=== PATIENT | female | born 1955 | race Caucasian/White ===

== ENCOUNTER 2018-05-25 14:39 | Inpatient (IN) | payer MEDICARE, OTHER ==
--- NOTE | 2018-05-25 14:53 | ED Physician Chart ---
ED Chief Complaint/HPI - Patient Information Date Seen:: 05/25/18 Time Seen:: 14:40 Chief Complaint:: Psychotic Behavior History of Present Illness:: onset x 3 days of paranoid psychotic behavior; no report of trauma, H/As, neck pain, cough, C/P, SOB, Abd. Pain, A/N/V/D/C, SIs, fever, chills, or urinary s/s Allergies:: Allergies Allergy/AdvReac Type Severity Reaction Status Date / Time No Known Allergies Allergy Verified 05/25/18 14:48 Historian:: Patient, EMS Review:: Nurse's Note Reviewed, Old Chart Reviewed, EMS run form Reviewed ED Review of Systems - Review of Systems General/Constitutional: No fever, No chills, No weight loss, No weakness, No diaphoresis, No edema, No loss of appetite Skin: No skin lesions, No rash, No bruising Head: No headache, No light-headedness Eyes: No loss of vision, No pain, No diplopia ENT: No earache, No nasal drainage, No sore throat, No tinnitus Neck: No neck pain, No swelling, No thyromegaly, No stiffness, No mass noted Cardio Vascular: No chest pain, No palpitations, No PND, No orthopnea, No edema Pulmonary: No SOB, No cough, No sputum, No wheezing GI: No nausea, No vomiting, No diarrhea, No pain, No melena, No hematochezia, No constipation, No hematemesis G/U: No dysuria, No frequency, No hematuria, No nacturia Clinical Associate: No vaginal discharge, No abnormal vaginal bleed, No contraction Musculoskeletal: No bone or joint pain, No back pain, No muscle pain Endocrine: No polyuria, No polydipsia Psychiatric: Prior psych history, No depression, Anxiety, No suicidal ideation, No homicidal ideation, Auditory hallucination, No visual hallucination Hematopoietic: No bruising, No lymphadenopathy Allergic/Immuno: No urticaria, No angioedema Neurological: No syncope, No focal symptoms, No weakness, No paresthesia, No headache, No seizure, No dizziness, No confusion, No vertigo ED Past Medical History - Past Medical History Obtainable: Yes Past Medical History: HTN, Dyslipidemia Family History: HTN Social History: Non Smoker, No Alcohol, No Drug Use, Single, Care Facility Surgical History: None Psychiatricy History: Schizophrenia Medication: Reviewed Family Medical History - Family Member Mother History Unknown: Yes ED Physical Exam - Physical Examination General/Constitutional: Awake, Well-developed, well-nourished, Alert, No distress, GCS 15, Non-toxic appearing, Ambulatory Head: Atraumatic Eyes: Lids, conjuctiva normal, PERRL, EOMI Skin: Nl inspection, No rash, No skin lesions, No ecchymosis, Well hydrated, No lymphadenopathy ENMT: External ears, nose nl, TM canals nl, Nasal exam nl, Lips, teeth, gums nl , Oropharynx nl, Tonsils nl Neck: Nontender, Full ROM w/o pain, No JVD, No nuchal rigidity, No bruit, No mass, No stridor Respiratory: Nl effort/Exclusion, Clear to Auscultation, No Wheeze/Rhonchi/Rales Cardio Vascular: RRR, No murmur, gallop, rubs, NL S1 S2, Carotid/Femoral/Distal pulses equal bilaterally GI: No tenderness/rebounding/guarding, No organomegaly, No hernia, Normal BS's, Nondistended, No mass/bruits, No McBurney tenderness : No CVA tenderness Extremities: No tenderness or effusion, Full ROM, normal strength in all extremities, No edema, Normal digits & nails Neuro/Psych: Alert/oriented, DTR's symmetric, Normal sensory exam, Normal motor strength, Judgement/insight normal, Mood normal, Normal gait, No focal deficits Other Neuro/Psych comments:: + Psychomotor Agitation; no SIs; Mood/Affect: Labile Misc: Normal back, No paraspinal tenderness ED Labs/Radiology/EKG Results - Lab Results Comments:: Reviewed - EKG Interpretations EKG Time:: 13:57 Rate & Rhythm: 92; NSR Comments:: non-specific st-t changes ED Septic Shock - . Is Septic Shock (SBP<90, OR Lactate>4 mmol\L) present?: No ED Reassessment (Disposition) - Reassessment Reassessment Condition:: Improved - Diagnosis Diagnosis:: Psychosis; Paranoia; Medical Clearance; Hypokalemia; Bipolar Disorder; Schizophrenia - Aftercare/Follow up Instructions Aftercare/Follow-Up Instructions:: Counseled pt regarding lab results/diagnosis & need follow up, Counseled pt & family regarding lab results/diagnosis & need follow up - Patient Disposition Discharge/Transfer:: Acute Care w/in this hosp Admitted to:: [facility] Condition at Disposition:: Stable, Improved
[2018-05-25 15:11] LABS: % BASOPHILS 1.2 % (0.0-2.0); % LYMPHOCYTES 19.2 % (20.0-50.0); % MONOCYTES 7.2 % (2.0-10.0); % NEUTROPHILS 71.4 % (40.0-80.0); BASOPHILE ABSOLUTE 0.1 Th/cumm (0-0.2); EOSINOPHILE ABSOLUTE 0.1 Th/cmm (0.1-0.4); HEMATOCRIT 45.7 % (41.0-60); HEMOGLOBIN 15.6 gm/dL (12-16); LYMPHOCYTE ABSOLUTE 2.3 Th/cmm (1.5-3.0); MEAN CELL VOLUME 90.4 fl (81-100); MEAN CORPUSCULAR HEMOGLOBIN 30.8 pg (27.0-31.0); MEAN CORPUSCULAR HGB CONC 34.1 pg (28.0-36.0); MEAN PLATELET VOLUME 9.1 fl; MONOCYTE ABSOLUTE 0.9 Th/cmm (0.3-1.0); NEUTROPHILE ABSOLUTE 8.6 Th/cmm (1.8-8.0); PLATELET COUNT 246 Th/cmm (150-400); RED BLOOD COUNT 5.06 Mil/cmm (3.80-5.10); RED CELL DISTRIBUTION WIDTH 13.2 % (11.5-20.0)
[2018-05-25 15:27] LABS: ACETAMINOPHEN < 10.0 ug/mL (10.0-30.0); ALB/GLOB RATIO 1.6 (1.0-1.8); ALBUMIN 4.6 gm/dL (3.7-5.3); ALKALINE PHOSPHATASE 81 U/L (34-104); ANION GAP 14.2 (7.0-16.0); BILIRUBIN,TOTAL 0.4 mg/dL (0.3-1.0); BUN - UREA NITROGEN 12 mg/dL (7-25); CALCIUM SERUM 9.2 mg/dL (8.6-10.3); CARBON DIOXIDE 23.8 mEq/L (21.0-31.0); CHLORIDE 107 mEq/L (98-107); CHOLESTEROL 172 mg/dL (<200); GFR AFRICAN-AMERICAN > 60.0 ml/min (>90); GFR NON AFRICAN-AMERICAN 59.7 ml/min; GLUCOSE 102 mg/dL (70-105); HDL -HIGH DENSITY LIPOPROTEIN 52 mg/dL (23-92); SGOT 28 U/L (13-39); SGPT/ALT 23 U/L (7-52); SODIUM SERUM 142 mEq/L (136-145); TOTAL PROTEIN,SERUM 7.5 gm/dL (6.0-8.3); TRIGLYCERIDES 99 mg/dL (<150)
[2018-05-25 15:29] LABS: SALICYLATES (ASPIRIN) < 25.0 mg/L (30.0-100.0)
[2018-05-25] MEDS ORDERED: Potassium Chloride 20 mEq ER Tab PO ONE ×2 (15:47→15:51)
[2018-05-25 17:41] VITALS: BP 150/83
[2018-05-25] MEDS ORDERED: Fleet Enema 135 mL RC PRN (17:59)
[2018-05-26] MEDS: Levothyroxine 0.1 Mg Tab PO SCH (06:31)
[2018-05-26] MEDS: Vitamin D3 2,000 IU SGL PO SCH (09:23)
[2018-05-26] MEDS: POLYETHYLENE GLYCOL 3350 17 GM PACK PO SCH (09:24)
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
[2018-05-27] MEDS: Levothyroxine 0.1 Mg Tab PO SCH (06:29)
[2018-05-27] MEDS: Vitamin D3 2,000 IU SGL PO SCH (08:58)
[2018-05-27] MEDS: POLYETHYLENE GLYCOL 3350 17 GM PACK PO SCH (09:01)
--- NOTE | 2018-05-27 17:53 | History & Physical ---
ADMIT DATE: REASON FOR ADMISSION: Psychiatric disorder. HISTORY OF PRESENT ILLNESS: This is a 62-year-old female who was admitted to Geropsych Unit by Dr. Klein. I was asked to do medical H and P on this patient. The patient states she is doing fine. Denies any medical complaints. PAST MEDICAL HISTORY: Hypothyroidism, GERD, chronic constipation, hypertension. PAST SURGICAL HISTORY: Right ankle in the past. FAMILY HISTORY: Noncontributory. SOCIAL HISTORY: [facility] at jail. No reported alcohol, tobacco or drug use. CURRENT MEDICATIONS: Per medication reconciliation. ALLERGIES: None. REVIEW OF SYSTEMS: As per HPI. No fever, no chills, no nausea, no abdominal pain, no headache, no trouble breathing, no chest pain, no palpitation, no bloody stool, bloody urine, or other concerns. PHYSICAL EXAMINATION: VITAL SIGNS: Temperature 97.9, pulse 70, respiration 19, blood pressure 138/57, ____ on room air. HEENT: Unremarkable. CARDIOVASCULAR: S1, S2 normal. LUNGS: Clear. ABDOMEN: Soft, nontender. ____. EXTREMITIES: No edema, no calf tenderness. AVAILABLE LABORATORY DATA: As noted. ASSESSMENT: 1. Hypertension. 2. Hypothyroidism. 3. Gastroesophageal reflux disease. 4. Leukocytosis. 5. Mental disorder. PLAN: Continue amlodipine. Continue levothyroxine. Continue psychotropic meds. Monitor lab and vitals. The patient is medically stable [facility]. Thank you, Dr. Klein for allowing me to participate in the care of this patient. JOB# [id number]
[2018-05-27 18:39] LABS: CHOLESTEROL 167 mg/dL (<200); HDL -HIGH DENSITY LIPOPROTEIN 43 mg/dL (23-92); TRIGLYCERIDES 113 mg/dL (<150)
--- NOTE | 2018-05-28 00:44 | Progress Notes ---
DATE: 05/27/2018 Case was discussed with staff of the patient and reviewed records. The patient continues to be internally preoccupied, unpredictable, and impulsive, needing redirection. She is denying all the events that led to her admission and she was questioning the validity of the hold, she said ____. She continues to be unpredictable, impulsive, needing redirection. No side effects to the medication, no sedation, no nausea, no extrapyramidal symptoms. We will continue to work with the patient in group therapy, milieu therapy, and adjust the medication as needed. JOB# [id number]
[2018-05-28] MEDS: Levothyroxine 0.1 Mg Tab PO SCH (06:33)
[2018-05-28] MEDS: Vitamin D3 2,000 IU SGL PO SCH (08:47)
[2018-05-28] MEDS: POLYETHYLENE GLYCOL 3350 17 GM PACK PO SCH (08:49)
[2018-05-28] MEDS: Hydrocodone/APAP 5mg/325mg Tab PO PRN (09:24)
--- NOTE | 2018-05-28 21:01 | General Progress Note ---
Subjective - Review of Systems Service Date: 05/29/18 Subjective: Patient doing fine denied any complaints Objective - Results Result Diagrams: 05/25/18 15:05 05/25/18 15:05 Recent Labs: Laboratory Last Values WBC 12.0 Th/cmm (4.8-10.8) H 05/25/18 15:05 RBC 5.06 Mil/cmm (3.80-5.10) 05/25/18 15:05 Hgb 15.6 gm/dL (12-16) 05/25/18 15:05 Hct 45.7 % (41.0-60) 05/25/18 15:05 MCV 90.4 fl (81-100) 05/25/18 15:05 MCH 30.8 pg (27.0-31.0) 05/25/18 15:05 MCHC Differential 34.1 pg (28.0-36.0) 05/25/18 15:05 RDW 13.2 % (11.5-20.0) 05/25/18 15:05 Plt Count 246 Th/cmm (150-400) 05/25/18 15:05 MPV 9.1 fl 05/25/18 15:05 Neutrophils % 71.4 % (40.0-80.0) 05/25/18 15:05 Lymphocytes % 19.2 % (20.0-50.0) L 05/25/18 15:05 Monocytes % 7.2 % (2.0-10.0) 05/25/18 15:05 Eosinophils % 1.0 % (0.0-5.0) 05/25/18 15:05 Basophils % 1.2 % (0.0-2.0) 05/25/18 15:05 Sodium 142 mEq/L (136-145) 05/25/18 15:05 Potassium 3.0 mEq/L (3.5-5.1) L 05/25/18 15:05 Chloride 107 mEq/L (98-107) 05/25/18 15:05 Carbon Dioxide 23.8 mEq/L (21.0-31.0) 05/25/18 15:05 Anion Gap 14.2 (7.0-16.0) 05/25/18 15:05 BUN 12 mg/dL (7-25) 05/25/18 15:05 Creatinine 1.0 mg/dL (0.6-1.2) 05/25/18 15:05 Est GFR ( Amer) > 60.0 ml/min (>90) 05/25/18 15:05 Est GFR (Non-Af Amer) 59.7 ml/min 05/25/18 15:05 BUN/Creatinine Ratio 12.0 05/25/18 15:05 Glucose 102 mg/dL (70-105) 05/25/18 15:05 Calcium 9.2 mg/dL (8.6-10.3) 05/25/18 15:05 Total Bilirubin 0.4 mg/dL (0.3-1.0) 05/25/18 15:05 AST 28 U/L (13-39) 05/25/18 15:05 ALT 23 U/L (7-52) 05/25/18 15:05 Alkaline Phosphatase 81 U/L (34-104) 05/25/18 15:05 Troponin I 0.01 ng/mL (0.01-0.05) 05/25/18 15:05 Total Protein 7.5 gm/dL (6.0-8.3) 05/25/18 15:05 Albumin 4.6 gm/dL (3.7-5.3) 05/25/18 15:05 Globulin 2.9 gm/dL 05/25/18 15:05 Albumin/Globulin Ratio 1.6 (1.0-1.8) 05/25/18 15:05 Triglycerides 113 mg/dL (<150) 05/27/18 18:16 Cholesterol 167 mg/dL (<200) 05/27/18 18:16 LDL Cholesterol Direct 109 mg/dL (75-193) 05/27/18 18:16 HDL Cholesterol 43 mg/dL (23-92) 05/27/18 18:16 TSH 0.71 uIU/ml (0.34-5.60) 05/25/18 15:05 Salicylates < 25.0 mg/L (30.0-100.0) L 05/25/18 15:05 Acetaminophen < 10.0 ug/mL (10.0-30.0) L 05/25/18 15:05 Ethyl Alcohol < 10 mg/dL (0-10) 05/25/18 15:05 RPR NONREACTIVE (NONREACTIVE) 05/25/18 15:05 - Physical Exam Vitals and I&O: Vital Signs Temp 97.5 F 05/28/18 20:32 Pulse 58 05/28/18 20:32 Resp 19 05/28/18 20:32 BP 119/58 05/28/18 20:32 Pulse Ox 96 05/28/18 20:32 Intake & Output 05/28/18 05/28/18 05/29/18 06:59 18:59 06:59 Intake Total 240 2080 240 Balance 240 2080 240 Intake: Oral 240 1960 240 Other 120 Other: # Voids 2 4 1 # Bowel Movements 0 1 Stool Characteristics Soft Soft Soft Formed Formed Formed Active Medications: Current Medications Acetaminophen (Tylenol) 325 mg PO Q4H PRN PRN Reason: Pain (Moderate) Stop: 07/24/18 17:48 Acetaminophen (Tylenol) 500 mg PO Q4HR PRN PRN Reason: Pain Or Fever above 101 Stop: 07/24/18 17:52 Acetaminophen/Hydrocodone Bitart ([place] 5mg/325mg) 1 tab PO Q6H PRN PRN Reason: SEVERE PAIN Stop: 07/24/18 18:03 Last Admin: 05/28/18 09:24 Dose: 1 tab Amlodipine Besylate (Norvasc) 10 mg PO DAILY [facility] Stop: 07/25/18 08:59 Last Admin: 05/28/18 08:48 Dose: 10 mg Bisacodyl (Dulcolax 10 Mg Supp) 10 mg RC DAILY PRN PRN Reason: Constipation Stop: 07/24/18 17:55 Famotidine (Pepcid) 20 mg PO BID [facility] Stop: 07/25/18 08:59 Last Admin: 05/28/18 16:20 Dose: 20 mg Furosemide (Lasix) 20 mg PO DAILY [facility] Stop: 07/25/18 08:59 Last Admin: 05/28/18 08:48 Dose: 20 mg Levothyroxine Sodium (Synthroid) 0.1 mg PO QDAC [facility] Stop: 07/25/18 07:29 Last Admin: 05/28/18 06:33 Dose: 0.1 mg Lorazepam (Ativan) 0.5 mg PO Q4HR PRN; Protocol PRN Reason: Anxiety Stop: 06/24/18 21:11 Magnesium Hydroxide (Milk Of Magnesia) 30 ml PO HS PRN PRN Reason: Constipation Stop: 07/24/18 18:01 Polyethylene Glycol (Miralax) 17 gm PO DAILY [facility] Stop: 07/25/18 08:59 Last Admin: 05/28/18 08:49 Dose: 17 gm Pregabalin (Lyrica) 75 mg PO BID [facility] Stop: 07/25/18 08:59 Last Admin: 05/28/18 16:20 Dose: 75 mg Quetiapine Fumarate (Seroquel) 25 mg PO HS [facility]; Protocol Stop: 07/25/18 20:59 Last Admin: 05/28/18 20:42 Dose: 25 mg Sodium Phosphate (Fleet Enema) 135 ml RC DAILY PRN PRN Reason: Constipation Stop: 07/24/18 17:58 Vitamin D (Vitamin D3) 5,000 iu PO DAILY [facility] Stop: 07/25/18 08:59 Last Admin: 05/28/18 08:47 Dose: 5,000 iu Zolpidem Tartrate (Ambien) 5 mg PO HS PRN PRN Reason: Insomnia Stop: 07/24/18 21:11 Cardiovascular: Regular rate Lungs: Clear to auscultation Assessment/Plan - Problem List Patient Problems: All Active Problems 51/50 STATUS, DELUSIONAL (Acute) - Assessment Assessment: Hypotension Hypothyroidism Neuropathy Mental health disorder - Plan Plan: Continue current treatment Medically stable Monitor BP Nutritional Asmnt/Malnutr-PDOC - Dietary Evaluation Malnutrition Findings (Please click <Entered> for more info): Nutritional Asmnt/Malnutrition Start: 05/28/18 10: 17 Text: Status: Complete Freq: Protocol: Document 05/28/18 10:17 ROCIO (Rec: 05/28/18 10:32 [facility]) Nutritional Asmnt/Malnutrition Patient General Information Nutritional Screening Moderate Risk Diagnosis Bipolar, schizophrenia Pertinent Medical Hx/Surgical Hx Hypothyroidism, GERD, chronic constipation, hypertension Subjective Information Patient was admitted from SNF. Not in room at time of visit. Current Diet Order/ Nutrition Support 60 gm CCHO Patient / S.O Not Indicated Pertinent Medications Dulcolax, Pepcid, lasix, synthroid, MOM, Miralax, Fleet enema, Vitamin D3 Pertinent Labs (05/25) K 3 Nutritional Hx/Data Height 1.6 m Height (Calculated Centimeters) 160.0 Current Weight (lbs) 91.172 kg Weight (Calculated Kilograms) 91.2 Weight (Calculated Grams) 32332.1 [place] Body Weight 115 % [place] Body Weight 174 Body Mass Index (BMI) 35.6 Weight Status Obese GI Symptoms GI Symptoms None Last BM 05/27 x 1 Difficult in: None Food Allergies No Cultural/Ethnic/B[employer]ism Belief none indicated Usual diet at home unknown Skin Integrity/Comment: [place] 22, intact Current %PO Good (75-100%) Estimated Nutritional Goals BEE in Kcals: Using Current wt Calories/Kcals/Kg 91.3kg CBW 20-25 kcal/kg Kcals Calculated ~7654-2927 kcal/day Protein: Adj wt of IBW Protein g/k.8-1 gm/kg Protein Calculated ~70-90 gm/day Fluid: ml ~8020-3095 ml/day (1 ml/kcal) Nutritional Problem 1. Problem Problem Altered nutrition related lab values related to Etiology electrolyte imbalance aeb Signs/Symptoms: K 3 Intervention/Recommendation Comments 1. Continue 60 gm CCHO diet as tolerated by patient (per nursing notes, patient with type 1 DM?). Consider checking HGA1C and monitoring glucose. Encourage intake of high K foods. Expected Outcomes/Goals Expected Outcomes/Goals Oral intake >75% of meals, weight stable or trend toward IBW, nutrition related labs WNL F/U MR 3-5 days (05/31-)
--- NOTE | 2018-05-29 02:19 | Progress Notes ---
DATE: SUBJECTIVE: The patient was seen and evaluated. The patient's chart reviewed. [facility] being very paranoid with the FBI conspiring against her and wanted to kill her. The patient, overnight, has been refusing medications. She reported that she is not psychotic and then reported that you are not a FBI agent, so I need not explain anything to you. ASSESSMENT AND PLAN: The patient presents psychotic, delusional about the FBI conspiring against her, and noncompliant with medications. We will continue with validation of her emotions and may consider Riesing the patient. JOB# [id number]
[2018-05-29] MEDS: Levothyroxine 0.1 Mg Tab PO SCH (06:47)
[2018-05-29] MEDS: POLYETHYLENE GLYCOL 3350 17 GM PACK PO SCH (08:48)
[2018-05-29] MEDS: Vitamin D3 2,000 IU SGL PO SCH (08:49)
[2018-05-29] MEDS: Magnesium Hydroxide (MOM) 30 mL UDC PO PRN (20:34)
--- NOTE | 2018-05-30 05:42 | Progress Notes ---
DATE: 05/29/2018 SUBJECTIVE: The patient was seen and evaluated. The patient's chart reviewed. The patient denies any complications or side effects of the medications and she is refusing medications reporting that she does not have a mental illness, but continues to discuss the severity of her delusions in regards to the FBI conspiring against her and she becomes very irritable and does not want to talk and she gives me a letter that is to be given to the FBI. MENTAL STATUS EXAMINATION: Still delusional about the FBI. ASSESSMENT AND PLAN: The patient is noncompliant with medication, continues to be delusional about the FBI prosecution. JOB# [id number]
[2018-05-30] MEDS: Levothyroxine 0.1 Mg Tab PO SCH (06:45)
[2018-05-30] MEDS: POLYETHYLENE GLYCOL 3350 17 GM PACK PO SCH (08:43)
[2018-05-30] MEDS: Vitamin D3 2,000 IU SGL PO SCH (08:43)
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
[2018-05-31] MEDS: Levothyroxine 0.1 Mg Tab PO SCH (06:43)
[2018-05-31] MEDS: POLYETHYLENE GLYCOL 3350 17 GM PACK PO SCH (09:01)
[2018-05-31] MEDS: Vitamin D3 2,000 IU SGL PO SCH (09:01)
[2018-06-01] MEDS: Levothyroxine 0.1 Mg Tab PO SCH (06:37)
[2018-06-01] MEDS: POLYETHYLENE GLYCOL 3350 17 GM PACK PO SCH (08:55)
[2018-06-01] MEDS: Vitamin D3 2,000 IU SGL PO SCH (08:56)
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
[2018-06-01] MEDS: Hydrocodone/APAP 5mg/325mg Tab PO PRN (17:45)
--- NOTE | 2018-06-01 22:54 | General Progress Note ---
Subjective - Review of Systems Service Date: 06/01/18 Subjective: Patient doing fine denied any complaints Objective - Results Result Diagrams: 05/25/18 15:05 05/25/18 15:05 Recent Labs: Laboratory Last Values WBC 12.0 Th/cmm (4.8-10.8) H 05/25/18 15:05 RBC 5.06 Mil/cmm (3.80-5.10) 05/25/18 15:05 Hgb 15.6 gm/dL (12-16) 05/25/18 15:05 Hct 45.7 % (41.0-60) 05/25/18 15:05 MCV 90.4 fl (81-100) 05/25/18 15:05 MCH 30.8 pg (27.0-31.0) 05/25/18 15:05 MCHC Differential 34.1 pg (28.0-36.0) 05/25/18 15:05 RDW 13.2 % (11.5-20.0) 05/25/18 15:05 Plt Count 246 Th/cmm (150-400) 05/25/18 15:05 MPV 9.1 fl 05/25/18 15:05 Neutrophils % 71.4 % (40.0-80.0) 05/25/18 15:05 Lymphocytes % 19.2 % (20.0-50.0) L 05/25/18 15:05 Monocytes % 7.2 % (2.0-10.0) 05/25/18 15:05 Eosinophils % 1.0 % (0.0-5.0) 05/25/18 15:05 Basophils % 1.2 % (0.0-2.0) 05/25/18 15:05 Sodium 142 mEq/L (136-145) 05/25/18 15:05 Potassium 3.0 mEq/L (3.5-5.1) L 05/25/18 15:05 Chloride 107 mEq/L (98-107) 05/25/18 15:05 Carbon Dioxide 23.8 mEq/L (21.0-31.0) 05/25/18 15:05 Anion Gap 14.2 (7.0-16.0) 05/25/18 15:05 BUN 12 mg/dL (7-25) 05/25/18 15:05 Creatinine 1.0 mg/dL (0.6-1.2) 05/25/18 15:05 Est GFR ( Amer) > 60.0 ml/min (>90) 05/25/18 15:05 Est GFR (Non-Af Amer) 59.7 ml/min 05/25/18 15:05 BUN/Creatinine Ratio 12.0 05/25/18 15:05 Glucose 102 mg/dL (70-105) 05/25/18 15:05 Calcium 9.2 mg/dL (8.6-10.3) 05/25/18 15:05 Total Bilirubin 0.4 mg/dL (0.3-1.0) 05/25/18 15:05 AST 28 U/L (13-39) 05/25/18 15:05 ALT 23 U/L (7-52) 05/25/18 15:05 Alkaline Phosphatase 81 U/L (34-104) 05/25/18 15:05 Troponin I 0.01 ng/mL (0.01-0.05) 05/25/18 15:05 Total Protein 7.5 gm/dL (6.0-8.3) 05/25/18 15:05 Albumin 4.6 gm/dL (3.7-5.3) 05/25/18 15:05 Globulin 2.9 gm/dL 05/25/18 15:05 Albumin/Globulin Ratio 1.6 (1.0-1.8) 05/25/18 15:05 Triglycerides 113 mg/dL (<150) 05/27/18 18:16 Cholesterol 167 mg/dL (<200) 05/27/18 18:16 LDL Cholesterol Direct 109 mg/dL (75-193) 05/27/18 18:16 HDL Cholesterol 43 mg/dL (23-92) 05/27/18 18:16 TSH 0.71 uIU/ml (0.34-5.60) 05/25/18 15:05 Salicylates < 25.0 mg/L (30.0-100.0) L 05/25/18 15:05 Acetaminophen < 10.0 ug/mL (10.0-30.0) L 05/25/18 15:05 Ethyl Alcohol < 10 mg/dL (0-10) 05/25/18 15:05 RPR NONREACTIVE (NONREACTIVE) 05/25/18 15:05 - Physical Exam Vitals and I&O: Vital Signs Temp 97.6 F 06/01/18 20:00 Pulse 82 06/01/18 20:00 Resp 20 06/01/18 20:00 BP 122/78 06/01/18 20:00 Pulse Ox 98 06/01/18 20:00 Intake & Output 06/01/18 06/01/18 06/02/18 06:59 18:59 06:59 Intake Total 240 1500 Balance 240 1500 Intake: Oral 240 1500 Other: # Voids 1 3 # Bowel Movements 0 0 Active Medications: Current Medications Acetaminophen (Tylenol) 325 mg PO Q4H PRN PRN Reason: Pain (Moderate) Stop: 07/24/18 17:48 Acetaminophen (Tylenol) 500 mg PO Q4HR PRN PRN Reason: Pain Or Fever above 101 Stop: 07/24/18 17:52 Acetaminophen/Hydrocodone Bitart ([place] 5mg/325mg) 1 tab PO Q6H PRN PRN Reason: SEVERE PAIN Stop: 07/24/18 18:03 Last Admin: 06/01/18 17:45 Dose: 1 tab Amlodipine Besylate (Norvasc) 10 mg PO DAILY [facility] Stop: 07/25/18 08:59 Last Admin: 06/01/18 09:02 Dose: 10 mg Bisacodyl (Dulcolax 10 Mg Supp) 10 mg RC DAILY PRN PRN Reason: Constipation Stop: 07/24/18 17:55 Last Admin: 05/29/18 04:33 Dose: 10 mg Famotidine (Pepcid) 20 mg PO BID [facility] Stop: 07/25/18 08:59 Last Admin: 06/01/18 17:46 Dose: 20 mg Furosemide (Lasix) 20 mg PO DAILY [facility] Stop: 07/25/18 08:59 Last Admin: 06/01/18 09:02 Dose: 20 mg Levothyroxine Sodium (Synthroid) 0.1 mg PO QDAC [facility] Stop: 07/25/18 07:29 Last Admin: 06/01/18 06:37 Dose: 0.1 mg Lorazepam (Ativan) 0.5 mg PO Q4HR PRN; Protocol PRN Reason: Anxiety Stop: 06/24/18 21:11 Magnesium Hydroxide (Milk Of Magnesia) 30 ml PO HS PRN PRN Reason: Constipation Stop: 07/24/18 18:01 Last Admin: 05/29/18 20:34 Dose: 30 ml Polyethylene Glycol (Miralax) 17 gm PO DAILY [facility] Stop: 07/25/18 08:59 Last Admin: 06/01/18 08:55 Dose: 17 gm Pregabalin (Lyrica) 75 mg PO BID [facility] Stop: 07/25/18 08:59 Last Admin: 06/01/18 17:45 Dose: 75 mg Risperidone (Risperdal) 0.5 mg PO BID [facility]; Protocol Stop: 07/31/18 16:59 Last Admin: 06/01/18 18:00 Dose: Not Given Sodium Phosphate (Fleet Enema) 135 ml RC DAILY PRN PRN Reason: Constipation Stop: 07/24/18 17:58 Vitamin D (Vitamin D3) 5,000 iu PO DAILY [facility] Stop: 07/25/18 08:59 Last Admin: 06/01/18 08:56 Dose: 5,000 iu Zolpidem Tartrate (Ambien) 5 mg PO HS PRN PRN Reason: Insomnia Stop: 07/24/18 21:11 General: Alert Cardiovascular: Regular rate Lungs: Clear to auscultation Assessment/Plan - Problem List Patient Problems: All Active Problems 51/50 STATUS, DELUSIONAL (Acute) - Assessment Assessment: Hypotension Hypothyroidism Neuropathy Mental health disorder - Plan Plan: Continue current treatment Medically stable Monitor BP Nutritional Asmnt/Malnutr-PDOC - Dietary Evaluation Malnutrition Findings (Please click <Entered> for more info): Nutritional Asmnt/Malnutrition Start: 05/28/18 10: 17 Text: Status: Complete Freq: Protocol: Document 05/28/18 10:17 [email or web address] (Rec: 05/28/18 10:32 [email or web address]- [email or web address]) Nutritional Asmnt/Malnutrition Patient General Information Nutritional Screening Moderate Risk Diagnosis Bipolar, schizophrenia Pertinent Medical Hx/Surgical Hx Hypothyroidism, GERD, chronic constipation, hypertension Subjective Information Patient was admitted from SNF. Not in room at time of visit. Current Diet Order/ Nutrition Support 60 gm CCHO Patient / S.O Not Indicated Pertinent Medications Dulcolax, Pepcid, lasix, synthroid, MOM, Miralax, Fleet enema, Vitamin D3 Pertinent Labs (05/25) K 3 Nutritional Hx/Data Height 1.6 m Height (Calculated Centimeters) 160.0 Current Weight (lbs) 91.172 kg Weight (Calculated Kilograms) 91.2 Weight (Calculated Grams) 79966.1 [place] Body Weight 115 % [place] Body Weight 174 Body Mass Index (BMI) 35.6 Weight Status Obese GI Symptoms GI Symptoms None Last BM 05/27 x 1 Difficult in: None Food Allergies No Cultural/Ethnic/Ep[employer] Belief none indicated Usual diet at home unknown Skin Integrity/Comment: [place] 22, intact Current %PO Good (75-100%) Estimated Nutritional Goals BEE in Kcals: Using Current wt Calories/Kcals/Kg 91.3kg CBW 20-25 kcal/kg Kcals Calculated ~1614-6431 kcal/day Protein: Adj wt of IBW Protein g/k.8-1 gm/kg Protein Calculated ~70-90 gm/day Fluid: ml ~1101-9086 ml/day (1 ml/kcal) Nutritional Problem 1. Problem Problem Altered nutrition related lab values related to Etiology electrolyte imbalance aeb Signs/Symptoms: K 3 Intervention/Recommendation Comments 1. Continue 60 gm CCHO diet as tolerated by patient (per nursing notes, patient with type 1 DM?). Consider checking HGA1C and monitoring glucose. Encourage intake of high K foods. Expected Outcomes/Goals Expected Outcomes/Goals Oral intake >75% of meals, weight stable or trend toward IBW, nutrition related labs WNL F/U MR 3-5 days (05/31-)
--- NOTE | 2018-06-02 04:00 | Progress Notes ---
DATE: 06/01/2018 SUBJECTIVE: The patient is currently in the hospital. Does not want to talk to me because "you are not law enforcement." The patient noted to be still symptomatic, ongoing concerns of delusions, paranoia, irritable, complaining of some constipation from the Seroquel. Ongoing safety concerns. Concerns of her ability to be cared for at a lower level of care. Remains suspicious. Not wanting her family to know that she was here. Fearful that people may try to hurt her. ASSESSMENT: Ongoing safety concerns. Paranoia, delusion, and psychosis. PLAN: I will be stopping the Seroquel. Start Risperdal. JOB# [id number]
[2018-06-02] MEDS: Levothyroxine 0.1 Mg Tab PO SCH (06:41)
[2018-06-02] MEDS: Vitamin D3 2,000 IU SGL PO SCH (08:44)
[2018-06-02] MEDS: POLYETHYLENE GLYCOL 3350 17 GM PACK PO SCH (08:45)
--- NOTE | 2018-06-03 03:44 | Progress Notes ---
DATE: 06/02/2018 SUBJECTIVE: The patient remains delusional; believing administration opening her mail, FBI is after her, FBI trying to harm her; believing that murderers are trying to find her. She witnessed a murder, ongoing delusions, not allowing anybody to contact family, taking medications. Fair sleep, fair appetite. Generally calm. ASSESSMENT: Ongoing delusions, psychosis, paranoia. PLAN: We will continue to monitor. Titrate dosages of medications slowly. [facility]# [id number]
[2018-06-03] MEDS: Levothyroxine 0.1 Mg Tab PO SCH (06:30)
[2018-06-03] MEDS: Vitamin D3 2,000 IU SGL PO SCH (08:32)
[2018-06-03] MEDS: POLYETHYLENE GLYCOL 3350 17 GM PACK PO SCH (08:32)
[2018-06-04] MEDS: Levothyroxine 0.1 Mg Tab PO SCH (06:34)
--- NOTE | 2018-06-04 07:16 | Progress Notes ---
DATE: COVERING FOR: Dr. Klein. Chart reviewed and the patient interviewed. Also discussed the patient's condition with the staff and reviewed records and labs. "I am bored and it is boring." The patient is complaining of feeling lonely and bored in the hospital. The patient also was refusing that the staff talk to her family because of her paranoia. On the other hand, the patient is calm and cooperative. She is still talking about FBI, "is after me and my belongings." Otherwise, no side effects of her medications. ASSESSMENT: The patient is still psychotic and agitated. TREATMENT PLAN: Continue to monitor her behavior and her condition closely. Also, continue to work on her irritability and paranoia and adjusting psychotropic medications and followup. JOB# [id number]
[2018-06-04] MEDS: Vitamin D3 2,000 IU SGL PO SCH (08:39)
[2018-06-04] MEDS: POLYETHYLENE GLYCOL 3350 17 GM PACK PO SCH (08:40)
--- NOTE | 2018-06-05 05:16 | Progress Notes ---
DATE: 06/04/2018 Case was discussed with staff of the patient, reviewed records. covering for Dr. Klein. I admitted her for him. The patient has been feeling lonely in the hospital. Continues to be paranoid. She, however, has been cooperative, but talked about the FBI. Continues to have episodes of agitation. She is still psychotic, unable to make safe plan for self-care, unpredictable, impulsive, needing redirection. Dr. Morgan increased Risperdal to 1 mg twice a day with no side effects, no sedation, no nausea, no extrapyramidal symptoms. We will continue outpatient group therapy, milieu therapy, and adjust medications as needed. [facility]# [id number] ELISA
[2018-06-05] MEDS: Levothyroxine 0.1 Mg Tab PO SCH (06:34)
[2018-06-05] MEDS: Vitamin D3 2,000 IU SGL PO SCH (08:50)
[2018-06-05] MEDS: POLYETHYLENE GLYCOL 3350 17 GM PACK PO SCH (08:51)
--- NOTE | 2018-06-05 14:17 | General Progress Note ---
Subjective - Review of Systems Service Date: 06/04/18 Subjective: Patient doing fine denied any complaints Objective - Results Result Diagrams: 05/25/18 15:05 05/25/18 15:05 Recent Labs: Laboratory Last Values WBC 12.0 Th/cmm (4.8-10.8) H 05/25/18 15:05 RBC 5.06 Mil/cmm (3.80-5.10) 05/25/18 15:05 Hgb 15.6 gm/dL (12-16) 05/25/18 15:05 Hct 45.7 % (41.0-60) 05/25/18 15:05 MCV 90.4 fl (81-100) 05/25/18 15:05 MCH 30.8 pg (27.0-31.0) 05/25/18 15:05 MCHC Differential 34.1 pg (28.0-36.0) 05/25/18 15:05 RDW 13.2 % (11.5-20.0) 05/25/18 15:05 Plt Count 246 Th/cmm (150-400) 05/25/18 15:05 MPV 9.1 fl 05/25/18 15:05 Neutrophils % 71.4 % (40.0-80.0) 05/25/18 15:05 Lymphocytes % 19.2 % (20.0-50.0) L 05/25/18 15:05 Monocytes % 7.2 % (2.0-10.0) 05/25/18 15:05 Eosinophils % 1.0 % (0.0-5.0) 05/25/18 15:05 Basophils % 1.2 % (0.0-2.0) 05/25/18 15:05 Sodium 142 mEq/L (136-145) 05/25/18 15:05 Potassium 3.0 mEq/L (3.5-5.1) L 05/25/18 15:05 Chloride 107 mEq/L (98-107) 05/25/18 15:05 Carbon Dioxide 23.8 mEq/L (21.0-31.0) 05/25/18 15:05 Anion Gap 14.2 (7.0-16.0) 05/25/18 15:05 BUN 12 mg/dL (7-25) 05/25/18 15:05 Creatinine 1.0 mg/dL (0.6-1.2) 05/25/18 15:05 Est GFR ( Amer) > 60.0 ml/min (>90) 05/25/18 15:05 Est GFR (Non-Af Amer) 59.7 ml/min 05/25/18 15:05 BUN/Creatinine Ratio 12.0 05/25/18 15:05 Glucose 102 mg/dL (70-105) 05/25/18 15:05 Calcium 9.2 mg/dL (8.6-10.3) 05/25/18 15:05 Total Bilirubin 0.4 mg/dL (0.3-1.0) 05/25/18 15:05 AST 28 U/L (13-39) 05/25/18 15:05 ALT 23 U/L (7-52) 05/25/18 15:05 Alkaline Phosphatase 81 U/L (34-104) 05/25/18 15:05 Troponin I 0.01 ng/mL (0.01-0.05) 05/25/18 15:05 Total Protein 7.5 gm/dL (6.0-8.3) 05/25/18 15:05 Albumin 4.6 gm/dL (3.7-5.3) 05/25/18 15:05 Globulin 2.9 gm/dL 05/25/18 15:05 Albumin/Globulin Ratio 1.6 (1.0-1.8) 05/25/18 15:05 Triglycerides 113 mg/dL (<150) 05/27/18 18:16 Cholesterol 167 mg/dL (<200) 05/27/18 18:16 LDL Cholesterol Direct 109 mg/dL (75-193) 05/27/18 18:16 HDL Cholesterol 43 mg/dL (23-92) 05/27/18 18:16 TSH 0.71 uIU/ml (0.34-5.60) 05/25/18 15:05 Salicylates < 25.0 mg/L (30.0-100.0) L 05/25/18 15:05 Acetaminophen < 10.0 ug/mL (10.0-30.0) L 05/25/18 15:05 Ethyl Alcohol < 10 mg/dL (0-10) 05/25/18 15:05 RPR NONREACTIVE (NONREACTIVE) 05/25/18 15:05 - Physical Exam Vitals and I&O: Vital Signs Temp 97 F 06/05/18 06:14 Pulse 82 06/05/18 06:14 Resp 18 06/05/18 06:14 BP 112/58 06/05/18 06:14 Pulse Ox 97 06/05/18 06:14 Intake & Output 06/04/18 06/05/18 06/05/18 18:59 06:59 18:59 Intake Total 1000 120 Balance 1000 120 Intake: Oral 1000 120 Other: # Voids 4 3 # Bowel Movements 1 Active Medications: Current Medications Acetaminophen (Tylenol) 325 mg PO Q4H PRN PRN Reason: Pain (Moderate) Stop: 07/24/18 17:48 Acetaminophen (Tylenol) 500 mg PO Q4HR PRN PRN Reason: Pain Or Fever above 101 Stop: 07/24/18 17:52 Acetaminophen/Hydrocodone Bitart ([place] 5mg/325mg) 1 tab PO Q6H PRN PRN Reason: SEVERE PAIN Stop: 07/24/18 18:03 Last Admin: 06/01/18 17:45 Dose: 1 tab Amlodipine Besylate (Norvasc) 10 mg PO DAILY [facility] Stop: 07/25/18 08:59 Last Admin: 06/04/18 08:39 Dose: 10 mg Bisacodyl (Dulcolax 10 Mg Supp) 10 mg RC DAILY PRN PRN Reason: Constipation Stop: 07/24/18 17:55 Last Admin: 05/29/18 04:33 Dose: 10 mg Famotidine (Pepcid) 20 mg PO BID [facility] Stop: 07/25/18 08:59 Last Admin: 06/05/18 08:49 Dose: 20 mg Furosemide (Lasix) 20 mg PO DAILY [facility] Stop: 07/25/18 08:59 Last Admin: 06/05/18 08:51 Dose: Not Given Levothyroxine Sodium (Synthroid) 0.1 mg PO QDAC [facility] Stop: 07/25/18 07:29 Last Admin: 06/05/18 06:34 Dose: 0.1 mg Lorazepam (Ativan) 0.5 mg PO Q4HR PRN; Protocol PRN Reason: Anxiety Stop: 06/24/18 21:11 Last Admin: 06/04/18 09:04 Dose: 0.5 mg Magnesium Hydroxide (Milk Of Magnesia) 30 ml PO HS PRN PRN Reason: Constipation Stop: 07/24/18 18:01 Last Admin: 05/29/18 20:34 Dose: 30 ml Polyethylene Glycol (Miralax) 17 gm PO DAILY [facility] Stop: 07/25/18 08:59 Last Admin: 06/05/18 08:51 Dose: 17 gm Pregabalin (Lyrica) 75 mg PO BID [facility] Stop: 07/25/18 08:59 Last Admin: 06/05/18 08:49 Dose: 75 mg Risperidone (Risperdal) 1 mg PO BID [facility]; Protocol Stop: 08/02/18 16:59 Last Admin: 06/05/18 08:50 Dose: 1 mg Sodium Phosphate (Fleet Enema) 135 ml RC DAILY PRN PRN Reason: Constipation Stop: 07/24/18 17:58 Vitamin D (Vitamin D3) 5,000 iu PO DAILY [facility] Stop: 07/25/18 08:59 Last Admin: 06/05/18 08:50 Dose: 5,000 iu Zolpidem Tartrate (Ambien) 5 mg PO HS PRN PRN Reason: Insomnia Stop: 07/24/18 21:11 Last Admin: 06/05/18 01:46 Dose: 5 mg General: Alert Cardiovascular: Regular rate Lungs: Clear to auscultation Assessment/Plan - Problem List Patient Problems: All Active Problems 51/50 STATUS, DELUSIONAL (Acute) - Assessment Assessment: Hypertension Hypothyroidism Neuropathy Mental health disorder - Plan Plan: Continue current treatment Medically stable Monitor BP Nutritional Asmnt/Malnutr-PDOC - Dietary Evaluation Malnutrition Findings (Please click <Entered> for more info): Nutritional Asmnt/Malnutrition Start: 05/28/18 10: 17 Text: Status: Complete Freq: Protocol: Document 05/28/18 10:17 ROCIO (Rec: 05/28/18 10:32 [email or web address]) Nutritional Asmnt/Malnutrition Patient General Information Nutritional Screening Moderate Risk Diagnosis Bipolar, schizophrenia Pertinent Medical Hx/Surgical Hx Hypothyroidism, GERD, chronic constipation, hypertension Subjective Information Patient was admitted from SNF. Not in room at time of visit. Current Diet Order/ Nutrition Support 60 gm CCHO Patient / S.O Not Indicated Pertinent Medications Dulcolax, Pepcid, lasix, synthroid, MOM, Miralax, Fleet enema, Vitamin D3 Pertinent Labs (05/25) K 3 Nutritional Hx/Data Height 1.6 m Height (Calculated Centimeters) 160.0 Current Weight (lbs) 91.172 kg Weight (Calculated Kilograms) 91.2 Weight (Calculated Grams) 83281.1 [place] Body Weight 115 % [place] Body Weight 174 Body Mass Index (BMI) 35.6 Weight Status Obese GI Symptoms GI Symptoms None Last BM 05/27 x 1 Difficult in: None Food Allergies No Cultural/Ethnic/Zoroastrianism Belief none indicated Usual diet at home unknown Skin Integrity/Comment: [place] 22, intact Current %PO Good (75-100%) Estimated Nutritional Goals BEE in Kcals: Using Current wt Calories/Kcals/Kg 91.3kg CBW 20-25 kcal/kg Kcals Calculated ~1834-4533 kcal/day Protein: Adj wt of IBW Protein g/k.8-1 gm/kg Protein Calculated ~70-90 gm/day Fluid: ml ~1526-0655 ml/day (1 ml/kcal) Nutritional Problem 1. Problem Problem Altered nutrition related lab values related to Etiology electrolyte imbalance aeb Signs/Symptoms: K 3 Intervention/Recommendation Comments 1. Continue 60 gm CCHO diet as tolerated by patient (per nursing notes, patient with type 1 DM?). Consider checking HGA1C and monitoring glucose. Encourage intake of high K foods. Expected Outcomes/Goals Expected Outcomes/Goals Oral intake >75% of meals, weight stable or trend toward IBW, nutrition related labs WNL F/U MR 3-5 days (05/31-)
--- NOTE | 2018-06-05 14:21 | General Progress Note ---
Subjective - Review of Systems Service Date: 06/05/18 Subjective: Patient doing fine denied any complaints Objective - Results Result Diagrams: 05/25/18 15:05 05/25/18 15:05 Recent Labs: Laboratory Last Values WBC 12.0 Th/cmm (4.8-10.8) H 05/25/18 15:05 RBC 5.06 Mil/cmm (3.80-5.10) 05/25/18 15:05 Hgb 15.6 gm/dL (12-16) 05/25/18 15:05 Hct 45.7 % (41.0-60) 05/25/18 15:05 MCV 90.4 fl (81-100) 05/25/18 15:05 MCH 30.8 pg (27.0-31.0) 05/25/18 15:05 MCHC Differential 34.1 pg (28.0-36.0) 05/25/18 15:05 RDW 13.2 % (11.5-20.0) 05/25/18 15:05 Plt Count 246 Th/cmm (150-400) 05/25/18 15:05 MPV 9.1 fl 05/25/18 15:05 Neutrophils % 71.4 % (40.0-80.0) 05/25/18 15:05 Lymphocytes % 19.2 % (20.0-50.0) L 05/25/18 15:05 Monocytes % 7.2 % (2.0-10.0) 05/25/18 15:05 Eosinophils % 1.0 % (0.0-5.0) 05/25/18 15:05 Basophils % 1.2 % (0.0-2.0) 05/25/18 15:05 Sodium 142 mEq/L (136-145) 05/25/18 15:05 Potassium 3.0 mEq/L (3.5-5.1) L 05/25/18 15:05 Chloride 107 mEq/L (98-107) 05/25/18 15:05 Carbon Dioxide 23.8 mEq/L (21.0-31.0) 05/25/18 15:05 Anion Gap 14.2 (7.0-16.0) 05/25/18 15:05 BUN 12 mg/dL (7-25) 05/25/18 15:05 Creatinine 1.0 mg/dL (0.6-1.2) 05/25/18 15:05 Est GFR ( Amer) > 60.0 ml/min (>90) 05/25/18 15:05 Est GFR (Non-Af Amer) 59.7 ml/min 05/25/18 15:05 BUN/Creatinine Ratio 12.0 05/25/18 15:05 Glucose 102 mg/dL (70-105) 05/25/18 15:05 Calcium 9.2 mg/dL (8.6-10.3) 05/25/18 15:05 Total Bilirubin 0.4 mg/dL (0.3-1.0) 05/25/18 15:05 AST 28 U/L (13-39) 05/25/18 15:05 ALT 23 U/L (7-52) 05/25/18 15:05 Alkaline Phosphatase 81 U/L (34-104) 05/25/18 15:05 Troponin I 0.01 ng/mL (0.01-0.05) 05/25/18 15:05 Total Protein 7.5 gm/dL (6.0-8.3) 05/25/18 15:05 Albumin 4.6 gm/dL (3.7-5.3) 05/25/18 15:05 Globulin 2.9 gm/dL 05/25/18 15:05 Albumin/Globulin Ratio 1.6 (1.0-1.8) 05/25/18 15:05 Triglycerides 113 mg/dL (<150) 05/27/18 18:16 Cholesterol 167 mg/dL (<200) 05/27/18 18:16 LDL Cholesterol Direct 109 mg/dL (75-193) 05/27/18 18:16 HDL Cholesterol 43 mg/dL (23-92) 05/27/18 18:16 TSH 0.71 uIU/ml (0.34-5.60) 05/25/18 15:05 Salicylates < 25.0 mg/L (30.0-100.0) L 05/25/18 15:05 Acetaminophen < 10.0 ug/mL (10.0-30.0) L 05/25/18 15:05 Ethyl Alcohol < 10 mg/dL (0-10) 05/25/18 15:05 RPR NONREACTIVE (NONREACTIVE) 05/25/18 15:05 - Physical Exam Vitals and I&O: Vital Signs Temp 97 F 06/05/18 06:14 Pulse 82 06/05/18 06:14 Resp 18 06/05/18 06:14 BP 112/58 06/05/18 06:14 Pulse Ox 97 06/05/18 06:14 Intake & Output 06/04/18 06/05/18 06/05/18 18:59 06:59 18:59 Intake Total 1000 120 Balance 1000 120 Intake: Oral 1000 120 Other: # Voids 4 3 # Bowel Movements 1 Active Medications: Current Medications Acetaminophen (Tylenol) 325 mg PO Q4H PRN PRN Reason: Pain (Moderate) Stop: 07/24/18 17:48 Acetaminophen (Tylenol) 500 mg PO Q4HR PRN PRN Reason: Pain Or Fever above 101 Stop: 07/24/18 17:52 Acetaminophen/Hydrocodone Bitart ([place] 5mg/325mg) 1 tab PO Q6H PRN PRN Reason: SEVERE PAIN Stop: 07/24/18 18:03 Last Admin: 06/01/18 17:45 Dose: 1 tab Amlodipine Besylate (Norvasc) 10 mg PO DAILY [facility] Stop: 07/25/18 08:59 Last Admin: 06/04/18 08:39 Dose: 10 mg Bisacodyl (Dulcolax 10 Mg Supp) 10 mg RC DAILY PRN PRN Reason: Constipation Stop: 07/24/18 17:55 Last Admin: 05/29/18 04:33 Dose: 10 mg Famotidine (Pepcid) 20 mg PO BID [facility] Stop: 07/25/18 08:59 Last Admin: 06/05/18 08:49 Dose: 20 mg Furosemide (Lasix) 20 mg PO DAILY [facility] Stop: 07/25/18 08:59 Last Admin: 06/05/18 08:51 Dose: Not Given Levothyroxine Sodium (Synthroid) 0.1 mg PO QDAC [facility] Stop: 07/25/18 07:29 Last Admin: 06/05/18 06:34 Dose: 0.1 mg Lorazepam (Ativan) 0.5 mg PO Q4HR PRN; Protocol PRN Reason: Anxiety Stop: 06/24/18 21:11 Last Admin: 06/04/18 09:04 Dose: 0.5 mg Magnesium Hydroxide (Milk Of Magnesia) 30 ml PO HS PRN PRN Reason: Constipation Stop: 07/24/18 18:01 Last Admin: 05/29/18 20:34 Dose: 30 ml Polyethylene Glycol (Miralax) 17 gm PO DAILY [facility] Stop: 07/25/18 08:59 Last Admin: 06/05/18 08:51 Dose: 17 gm Pregabalin (Lyrica) 75 mg PO BID [facility] Stop: 07/25/18 08:59 Last Admin: 06/05/18 08:49 Dose: 75 mg Risperidone (Risperdal) 1 mg PO BID [facility]; Protocol Stop: 08/02/18 16:59 Last Admin: 06/05/18 08:50 Dose: 1 mg Sodium Phosphate (Fleet Enema) 135 ml RC DAILY PRN PRN Reason: Constipation Stop: 07/24/18 17:58 Vitamin D (Vitamin D3) 5,000 iu PO DAILY [facility] Stop: 07/25/18 08:59 Last Admin: 06/05/18 08:50 Dose: 5,000 iu Zolpidem Tartrate (Ambien) 5 mg PO HS PRN PRN Reason: Insomnia Stop: 07/24/18 21:11 Last Admin: 06/05/18 01:46 Dose: 5 mg General: Alert Cardiovascular: Regular rate Lungs: Clear to auscultation Assessment/Plan - Problem List Patient Problems: All Active Problems 51/50 STATUS, DELUSIONAL (Acute) - Assessment Assessment: Hypertension Hypothyroidism Neuropathy Mental health disorder - Plan Plan: Continue current treatment Medically stable Monitor BP Nutritional Asmnt/Malnutr-PDOC - Dietary Evaluation Malnutrition Findings (Please click <Entered> for more info): Nutritional Asmnt/Malnutrition Start: 05/28/18 10: 17 Text: Status: Complete Freq: Protocol: Document 05/28/18 10:17 ROCIO (Rec: 05/28/18 10:32 [email or web address]) Nutritional Asmnt/Malnutrition Patient General Information Nutritional Screening Moderate Risk Diagnosis Bipolar, schizophrenia Pertinent Medical Hx/Surgical Hx Hypothyroidism, GERD, chronic constipation, hypertension Subjective Information Patient was admitted from SNF. Not in room at time of visit. Current Diet Order/ Nutrition Support 60 gm CCHO Patient / S.O Not Indicated Pertinent Medications Dulcolax, Pepcid, lasix, synthroid, MOM, Miralax, Fleet enema, Vitamin D3 Pertinent Labs (05/25) K 3 Nutritional Hx/Data Height 1.6 m Height (Calculated Centimeters) 160.0 Current Weight (lbs) 91.172 kg Weight (Calculated Kilograms) 91.2 Weight (Calculated Grams) 28956.1 [place] Body Weight 115 % [place] Body Weight 174 Body Mass Index (BMI) 35.6 Weight Status Obese GI Symptoms GI Symptoms None Last BM 05/27 x 1 Difficult in: None Food Allergies No Cultural/Ethnic/Mormonism Belief none indicated Usual diet at home unknown Skin Integrity/Comment: Grant 22, intact Current %PO Good (75-100%) Estimated Nutritional Goals BEE in Kcals: Using Current wt Calories/Kcals/Kg 91.3kg CBW 20-25 kcal/kg Kcals Calculated ~6791-6462 kcal/day Protein: Adj wt of IBW Protein g/k.8-1 gm/kg Protein Calculated ~70-90 gm/day Fluid: ml ~8608-3561 ml/day (1 ml/kcal) Nutritional Problem 1. Problem Problem Altered nutrition related lab values related to Etiology electrolyte imbalance aeb Signs/Symptoms: K 3 Intervention/Recommendation Comments 1. Continue 60 gm CCHO diet as tolerated by patient (per nursing notes, patient with type 1 DM?). Consider checking HGA1C and monitoring glucose. Encourage intake of high K foods. Expected Outcomes/Goals Expected Outcomes/Goals Oral intake >75% of meals, weight stable or trend toward IBW, nutrition related labs WNL F/U MR 3-5 days (05/31-)
--- NOTE | 2018-06-06 03:05 | Progress Notes ---
DATE: 06/05/[address] Klein. SUBJECTIVE: Case was discussed with staff of the patient, reviewed records. The patient has makeup on today. She seems to be showing a little progress. She continues to have episodes of agitation, continues to have episodes of hearing voices. She is sleeping better, eating better. No side effects with the medication, no sedation, no nausea, and no extrapyramidal symptoms. We will continue to work with the patient in group therapy, milieu therapy, and adjust the medication as needed. JOB# [id number]
[2018-06-06] MEDS: Levothyroxine 0.1 Mg Tab PO SCH (06:35)
[2018-06-06] MEDS: Magnesium Hydroxide (MOM) 30 mL UDC PO PRN (06:49)
[2018-06-06] MEDS: Vitamin D3 2,000 IU SGL PO SCH (08:37)
[2018-06-06] MEDS: POLYETHYLENE GLYCOL 3350 17 GM PACK PO SCH (08:38)
--- NOTE | 2018-06-07 02:55 | Progress Notes ---
DATE: 06/06/2018 SUBJECTIVE: The patient is currently in the hospital, seems to be showing some improvement, less fixated on people trying to harm her, less fixated on the FBI involvement, taking her medications. No overt side effects, better orientation, still somewhat paranoid, delusions seem somewhat fixed, but no overt safety concerns. She is not aggressive. She is actually pretty pleasant on exam. Tolerant of medications. No overt side effects. The patient is asking to take all of her medications in the morning. ASSESSMENT: The patient seems to be improving, generally calmer, delusions dissipating, more sociable, more engaged, out of her room more. PLAN: [email or web address] JOB# [id number] ELISA
--- NOTE | 2018-06-07 20:23 | Discharge Summary ---
DATE OF DISCHARGE: 06/06/2018 A 62-year-old female, paranoid, psychotic, believing people are after her, FBI involved, delusional, psychotic. PAST PSYCHIATRIC HISTORY: Noted. MEDICAL HISTORY: Noted. SOCIAL HISTORY: Noted. PROVISIONAL DIAGNOSES: Psychosis, unspecified; rule out delusional disorder; rule out schizophrenia. Under medical, please see full H and P. HOSPITAL COURSE: After initial assessment, the patient was started on medications. Medications were adjusted, titrated. Over the course of the hospital stay, she did improve has antipsychotic medications were adjusted and titrated, her psychosis dissipated. No longer delusional, no longer psychotic, no longer believing that murderers were after her, fair sleep, fair appetite, more sociable, out of her room more, normalization of sleep and appetite. CONDITION UPON DISCHARGE: Improved, better ADLs. Mood "okay." Affect constricted. Thought processes were more linear, no SI, no HI, no psychosis, no delusions. Insight and judgment seemed improved. PROVISIONAL DIAGNOSES: Psychosis, unspecified; rule out schizophrenia. Under medical, please see full H and P. PROGNOSIS: The patient follows up with outpatient mental health services and remains compliant with treatment and prognosis will improve, otherwise guarded. [facility]# [id number]
== END 2018-06-06 16:30 | DRG 885 ==
LOC: ER 14:39 → GERO 16:20
PROVIDERS: ADMIT Psychiatry & Neurology Psychiatry; ATTEND Psychiatry & Neurology Psychiatry
DX: F20.9 Schizophrenia, unspecified (principal); F29 Unspecified psychosis not due to a substance or known physiological condition; I10 Essential (primary) hypertension; E03.9 Hypothyroidism, unspecified; D72.829 Elevated white blood cell count, unspecified; K21.9 Gastro-esophageal reflux disease without esophagitis; G62.9 Polyneuropathy, unspecified; E78.5 Hyperlipidemia, unspecified; F31.9 Bipolar disorder, unspecified; E87.6 Hypokalemia; K59.09 Other constipation
CPT/HCPCS: 36415-UA; 80053-TC; 80061-TC; 80320-TC; 80329-TC; 83036-90; 84443-TC; 84484-TC; 85025-TC; 86592-TC; 93005; G0410; Z7610